=== PATIENT | female | born 1950 | race Caucasian/White ===

== ENCOUNTER 2022-02-10 04:02 | Emergency (ER) | payer MEDICARE ==
[~2022-02-10] VITALS: Ht 162.6 cm; Wt 70.3 kg
[2022-02-10 04:18] VITALS: BP 118/72
[2022-02-10] MEDS ORDERED: NAPR-1180 PO (04:30)
[2022-02-10] MEDS ORDERED: NAPROXEN 500 MG TABLET PO ONE (05:30)
[2022-02-10] MEDS ORDERED: NAPROXEN 250 MG TAB ONE (05:32)
== END 2022-02-10 05:46 | disposition home or self-care (01) ==
LOC: EDH 04:02
DX: M25.461 Effusion, right knee (principal); M25.471 Effusion, right ankle; M79.604 Pain in right leg; Z98.890 Other specified postprocedural states
CPT/HCPCS: 93971